=== PATIENT | male | born 1990 | race African-American/Black ===

== ENCOUNTER 2018-05-08 19:38 | Emergency (ER) | payer SELFPAY ==
[~2018-05-08] VITALS: Ht 185.4 cm; Wt 82.7 kg
[2018-05-08 19:38] VITALS: BP 142/86
[2018-05-08] MEDS ORDERED: ADACEL/BOOSTRIX VACCINE (DIPHTH/PERTUSS/ACELL/TETANUS)0.5ML SYR (90715) IM ONE (20:45)
== END 2018-05-08 22:16 | disposition home or self-care (01) ==
LOC: M ED 19:38
DX: S01.112A Laceration without foreign body of left eyelid and periocular area, initial encounter (principal); S09.90XA Unspecified injury of head, initial encounter; W22.8XXA Striking against or struck by other objects, initial encounter; Y92.59 Other trade areas as the place of occurrence of the external cause; Y93.01 Activity, walking, marching and hiking; Z87.891 Personal history of nicotine dependence